=== PATIENT | female | born 1995 | race Caucasian/White ===

== ENCOUNTER 2018-02-08 17:44 | Emergency (ER) | payer OTHER ==
[~2018-02-08] VITALS: Ht 170.2 cm; Wt 48.4 kg
[2018-02-08 18:31] LABS: HEMATOCRIT 34.3 % (36.0-46.0); HEMOGLOBIN 11.9 G/DL (11.9-15.5); MCH 31.7 PG (29.0-34.0); MCHC 34.7 G/DL (30.0-36.0); MCV 91.5 FL (83-99); PLATELET COUNT 238 K/uL (156-360); RBC DIS.WIDTH-CV 11.9 % (11.8-14.6); RBC DIS.WIDTH-SD 39.7 % (39-53); RED BLOOD COUNT 3.75 M/uL (3.80-5.20); WHITE BLOOD COUNT 8.3 K/uL (4.1-10.2)
[2018-02-08 18:45] LABS: ALBUMIN 4.2 g/dL (3.2-4.8); CHLORIDE 106 mEq/L (99-109); POTASSIUM 3.8 mEq/L (3.7-5.4); SODIUM 137 mEq/L (136-147)
[2018-02-08 18:46] LABS: APPEARANCE CLEAR ((CLEAR)); BILIRUBIN NEGATIVE; BLOOD NEGATIVE; COLOR STRAW ((YELLOW)); GLUCOSE (STRIP) NEGATIVE; KETONES NEGATIVE; LEUKOCYTES NEGATIVE; NITRITE NEGATIVE; PROTEIN (STRIP) NEGATIVE; SPECIFIC GRAVITY 1.009 (1.000-1.030); UCUL ADDED? NO; UROBILINOGEN 0.2 MG/DL (0.2-1.0)
[2018-02-08 19:20] LABS: QUANTITATIVE HCG 18547.7 MIU/ML
[2018-02-08 19:31] LABS: GLUCOSE 86 mg/dL (70-99)
[2018-02-08 19:32] LABS: TOTAL PROTEIN 6.8 g/dL (6.4-8.3)
[2018-02-08 19:33] LABS: TOTAL BILIRUBIN 0.8 mg/dL (0.0-1.0)
[2018-02-08 19:35] LABS: ALKALINE PHOSPHATASE 52 IU/L (3-129); CREATININE 0.6 mg/dL (0.6-1.3); GFR ESTIMATE (CALCULATED) > 59 mL/min/
[2018-02-08 19:36] LABS: UREA NITROGEN (BUN) 7 mg/dL (9-23)
[2018-02-08 19:37] LABS: AST (GOT) 17 IU/L (2-34)
[2018-02-08 19:38] LABS: ALT (GPT) 9 IU/L (3-49)
[2018-02-08 20:00] VITALS: BP 110/71
== END 2018-02-08 20:00 | disposition home or self-care (01) ==
LOC: EME 17:44
PROVIDERS: Physician Assistant
DX: O20.9 Hemorrhage in early pregnancy, unspecified (principal); R10.9 Unspecified abdominal pain; O99.331 Smoking (tobacco) complicating pregnancy, first trimester; F17.200 Nicotine dependence, unspecified, uncomplicated; Z3A.01 Less than 8 weeks gestation of pregnancy
CPT/HCPCS: 76801; 80053; 81003; 84702; 85027; 86900; 86901; 99281; 99284